=== PATIENT | male | born 1970 | race Caucasian/White ===

== ENCOUNTER → 2016-09-08 | Day surgery (SDC) | payer BC ==
[~2016-09-08] VITALS: Ht 180.3 cm; Wt 82.3 kg
[~2016-09-08] MED LIST: *morphine SULFATE 8 MG/ML PERIprocedure ONLY ONE; ACETAMINOPHEN 1000 MG/100 ML VIAL IV ONE; ACETAMINOPHEN/HYDROcodone 325 MG/10 MG TAB PO PRN; ADDE30TA PO; ARTIFICIAL TEARS OPTH OINT 3.5 APPLIC/3.5 GM TUBO ONE; BUPIVACAINE/EPINEPHRINE 0.5% PF 30 ML VIAL ONE; CITA20TA4 PO; DO NOT ADM ANY ANTICOAGULANT DRUGS XX PRN; FAMOTIDINE 20 MG/2 ML VIAL ONE; GELFOAM SIZE 100 ONE; GENTAMICIN SULFATE 80 MG/2 ML VIAL IRRIGATION ONE; GENTAMICIN SULFATE 80 MG/2 ML VIAL ONE; HYDR-3533 PO; HYDR-3535 PO; INSULIN HUMAN REGULAR 1,000 UNITS/10 ML VIAL SQ PRN; LACTATED RINGER'S 1000 ML INJ 1,000 ML IV ONE; LACTATED RINGER'S 1000 ML IV SCH; METOPROLOL TARTRATE 25 MG TAB PO PRN; MIDAZOLAM HCL 2 MG/2 ML VIAL ONE; NEOSTIGMINE 3 MG/3 ML SYR IV ONE; ONDANSETRON HCL 4 MG/2 ML VIAL IV PUSH ONE; PROPOFOL 200 MG/20 ML AMP IV ONE; SODIUM CHLOR 0.9% 250 ML INJ 250 ML ONE; SODIUM CHLORID 0.9% 500 ML IV SCH; THROMBIN (TOPICAL) 5,000 UNIT VIAL ONE; VANCOMYCIN HCL 1000 MG VIAL ONE; ceFAZolin 2 GM PREMIX 50 ML ONE; fentaNYL CITRATE 250 MCG/5 ML AMP ONE; methylPREDNISolone ACETATE 40 MG/ML VIAL ONE
[2016-09-08 06:48] VITALS: BP 117/76; PULSE 57; RESP 18; TEMP 82.3; O2SAT 98
[2016-09-08 13:30] VITALS: BP 118/74; PULSE 66; RESP 18; TEMP 97.5; O2SAT 99
--- NOTE | 2016-09-08 16:08 | PD.OP ---
Operative Report Date of Surgery: Sep 08, 2016 Preoperative Diagnosis: L5-S1 lumbar disk herniation Postoperative Diagnosis: L5-S1 lumbar disk herniation Procedure: L5-S1 left hemilaminectomy and microdiscectomy Anesthesia: general Surgeon: Cristo Manjarrez Associate Professor Of Economics(s): Jaci Wesley Operation and Findings: INDICATIONS FOR THE SURGICAL PROCEDURE Mr Peter is a 46 year-old male who presented with intractable back pain and clinical evidence of S1 lower extremity radiculopathy. He was found to have a disk herniation with significant stenosis with significant mass effect on the S1 exiting nerve root which correlated with his clinical symptoms. He failed maximum nonsurgical management including multiple modalities of conservative treatment as well as pain management interventions by an interventional pain specialist. A surgical decompression were indicated as a last resort. The [id number] details of the procedure, indications, alternatives, risks and potential complications were fully discussed with the patient. The patient fully understood. All the questions were answered. No guarantees were given. The patient voiced requesting the procedure and signed informed consents. The patient was offered the alternative of delaying the procedure and continuing with nonsurgical management. DETAILS OF THE SURGICAL PROCEDURE After the induction of general anesthesia, endotracheal intubation was performed. A Graves catheter, bilateral ALEX hose and sequential compression devices were placed and kept throughout the procedure. The patient was positioned prone on a Matti table over a Shmuel frame. All pressure points were carefully padded with eggcrate mattress. The eyes were tapped shut after ointment was applied by the anesthesiologist to prevent corneal abrasion. A Rosa hugger was placed over the exposed lower body to maintain control of the core body temperature. The lower lumbar region was prepped and draped in the usual sterile fashion. A spinal needle was placed for localization and an x- ray performed with a C-arm. A skin incision was made in the midline over the spinous processes L5-S1 with a #10 blade. Small subcutaneous bleeders were controlled with a bipolar and the dissection was carried out through the lumbar fascia exposing the spinous processes. A subperiosteal dissection was performed with a Perdue elevator and a Bovie over the L5-S1 spinous process lamina and facets on the left side. A microdiscectomy self-retaining retractor was placed on the incision and an x- ray was obtained with an instrument placed underneath the lamina. At this point in the procedure the operating microscope was draped in the usual sterile fashion and brought to the field. The rest of the surgical procedure was performed using microsurgical dissection technique with exception of the closure. Once the level was confirmed, a decompressive laminectomy was performed at L5- S1 on the left using the TPS drill with an AM-8 drill bit. A medial facetectomy was performed and the superior free border of the ligamentum flavum was dissected with a ligament dissector and removed with a thin footplate 2 mm Kerrison The medial facetectomy allowed me to expose the S1 nerve root, which was identified and followed towards its exit in the foramen. Epidural veins located laterally to the dural sac were coagulated with a bipolar and incised with microscissors. Gentle medial retraction of the dural sac allowed inspection of the disc space. The patient had a disc herniation, causing mass effect over the exiting nerve root as well as a synovial cyst. The annulus fibrosus of the disc was coagulated with the bipolar and incised with an 11 blade. The disc and synovial cyst were carefully dissected from the surrounding tissue and removed with pituitary forceps. Then, a microdiscectomy was carried out in the standard fashion using straight and up-biting pituitary forceps. A good decompression of the dural sac and nerve root was achieved. The exit of the nerve root was inspected for residual disc fragments and hemostasis was secured with the bipolar. The incision was irrigated with a large amount of saline solution. A Valsalva maneuver failed to show any cerebrospinal fluid leak or bleeding. The decompression was assessed again and found to be satisfactory. The incision was then closed in layers. The fascia was closed with 0 Vicryl sutures in an interrupted fashion. The superficial fascia was closed with 0 Vicryl sutures. The fascia was infiltrated with 0.5% Marcaine with epinephrine 1:100,000 dilution. The subcutaneous tissue was irrigated then closed with 0 Vicryl and 3 -0 Vicryl. The skin was closed with 4-0 running subcuticular Vicryl. Dermabond was applied to the skin. A sterile dressing was applied. At the end of the procedure, the sponge, needle and instrument counts were all correct. Estimated blood loss was less than 30 cc. No blood transfusion was given. No intraoperative complications occurred. The patient received prophylactic antibiotics. The patient was then extubated and transferred to the recovery room in stable condition. Cristo Manjarrez MD Sep 08, 2016 16:08
--- NOTE | 2016-09-08 17:03 | EKG ---
Date Performed: 09/08/2016 Time Performed: 06:45:14 PTAGE: 46 years EKG: SINUS BRADYCARDIA BORDERLINE ECG NO PREVIOUS TRACING DOCTOR: Kodi Mendez Interpretating Date/Time 09/08/2016 16:59:34
--- NOTE | 2016-09-08 19:00 | RADRPT ---
EXAM DATE/TIME: 09/08/2016 09:02 [facility] COMPARISON: No previous studies available for comparison. INDICATIONS : Level Localization L5,S1. MEDICAL HISTORY : Cardiovascular disease. SURGICAL HISTORY : None. ENCOUNTER: Initial ACUITY: 1 day PAIN SCORE: Non-responsive. LOCATION: Lumbar spine. FINDINGS: A single lateral view of the lumbar spine was performed. Lateral localization hardware reveals surgic al instruments projected over posterior elements of the lumbosacral junction. CONCLUSION: 1. Localization as above. Srinivasan Patel MD on September 08, 2016 at 18:58 Board Certified Radiologist. This report was verified electronically.
== END | disposition home or self-care (01) ==
LOC: HSDC 05:37
PROVIDERS: ATTEND Neurological Surgery
DX: M51.26 Other intervertebral disc displacement, lumbar region (principal); R94.31 Abnormal electrocardiogram [ECG] [EKG]
CPT/HCPCS: 00630; 63030; 72020; 76000; 86850; 86900; 86901; 93005; J0131; J0690; J1580; J2250; J2270; J2405; J2710; J3010; J3370; J7050; J7120; L0627; J1030